=== PATIENT | female | born 1975 | race Two or more races ===

== ENCOUNTER 2017-09-04 10:37 | Emergency (ER) | payer MEDICAID ==
[~2017-09-04] VITALS: Ht 152.4 cm; Wt 58.1 kg
[2017-09-04] MEDS ORDERED: DiphenhydrAMINE 50mg/ml Inj IVP ONE (11:15)
[2017-09-04 11:32] LABS: BASOPHILS % (AUTO) 1.3 % (0.0-2.0); EOSINOPHILS % (AUTO) 1.1 % (0.0-3.0); HEMATOCRIT 28.4 % (37.0-47.0); HEMOGLOBIN 8.3 G/DL (12.0-16.0); LYMPHOCYTES % (AUTO) 20.7 % (20.0-45.0); MEAN CORPUSCULAR VOLUME 67 FL (80-99); MONOCYTES % (AUTO) 6.5 % (1.0-10.0); NEUTROPHILS % (AUTO) 70.3 % (45.0-75.0); PLATELET COUNT 192 K/UL (150-450); RED BLOOD COUNT 4.28 M/UL (4.20-5.40); RED CELL DISTRIBUTION WIDTH 15.5 % (11.6-14.8); WHITE BLOOD COUNT 4.7 K/UL (4.8-10.8)
[2017-09-04 11:47] LABS: ANION GAP 9 mmol/L (5-15); BLOOD UREA NITROGEN 8 mg/dL (7-18); CALCIUM 8.8 MG/DL (8.5-10.1); CARBON DIOXIDE 25 MMOL/L (21-32); CHLORIDE 104 MMOL/L (98-107); CREATININE 0.5 MG/DL (0.55-1.30); POTASSIUM 4.3 MMOL/L (3.5-5.1); SODIUM 138 MMOL/L (136-145)
[2017-09-04 11:54] LABS: APPEARANCE,URINE CLEAR; BILIRUBIN, URINE NEGATIVE (NEGATIVE); COLOR,URINE PALE YELLOW; GLUCOSE, URINE (UA) NEGATIVE (NEGATIVE); KETONES,URINE NEGATIVE (NEGATIVE); LEUKOCYTE ESTERASE ,URINE 1+ (NEGATIVE); NITRITE,URINE NEGATIVE (NEGATIVE); PH,URINE 8 (4.5-8.0); PROTEIN,URINE NEGATIVE (NEGATIVE); UROBILINOGEN,URINE NORMAL MG/DL (0.0-1.0)
[2017-09-04 11:59] LABS: ALANINE AMINOTRANSFERASE 22 U/L (12-78); ALBUMIN 3.6 G/DL (3.4-5.0); ALBUMIN/GLOBULIN RATIO 1.1 (1.0-2.7); ALKALINE PHOSPHATASE 58 U/L (46-116); ASPARTATE AMINO TRANSFERASE 17 U/L (15-37); BILIRUBIN,TOTAL 0.3 MG/DL (0.2-1.0); CREATINE KINASE 45 U/L (26-308)
[2017-09-04 12:00] VITALS: BP 97/54
--- NOTE | 2017-09-04 12:24 | Diagnostic Imaging Report ---
Indication: Dyspnea Comparison: None A single view chest radiograph was obtained. Findings: Cardiomediastinal appearance is within normal limits for age. Pulmonary vascularity is appropriate. The diaphragmatic contour is smooth and costophrenic angles are sharp. No pleural effusions are identified. The bones are unremarkable. Impression: No acute findings
--- NOTE | 2017-09-04 13:10 | Emergency Room Report ---
History of Present Illness General Chief Complaint: Dyspnea/Respdistress Source: Patient Present Illness HPI Patient with increasing dyspnea. Also some dizziness. Increase stress from work. Feels anxiety. Denies chest pain. Has palpitations with dyspnea. No headache or LOC. No NVD. No fevers or chills. No dysuria. No cough or wheezing. Has been progressing over past month and worsened over the last week. No depression. No calf pain or edema. Periods are heavy. Last period end of month. No polies. Unknown thyroid. No rashes. No joint or back pain. Denies prior medical problems. 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 Last Menstrual Period: none Now: No Reviewed Nursing Documentation: PMH: Agreed; PSxH: Agreed Nursing Documentation-PMH Past Medical History: No Stated History Review of Systems All Other Systems: negative except mentioned in HPI Physical Exam Vital Signs Date Time Temp Pulse Resp B/P (MAP) Pulse Ox O2 Delivery O2 Flow Rate FiO2 09/04/17 10:42 98.2 77 18 122/80 99 Room Air 98.2 Sp02 EP Interpretation: reviewed, normal General Appearance: well appearing, no apparent distress, GCS 15 Head: normocephalic Eyes: bilateral eye PERRL, bilateral eye conjunctivae pale ENT: moist mucus membranes Neck: supple Respiratory: lungs clear, normal breath sounds Cardiovascular #1: regular rate, rhythm Cardiovascular #2: 2+ radial (R) Gastrointestinal: normal inspection, normal bowel sounds, non tender, no mass, non-distended Genitourinary: no CVA tenderness Musculoskeletal: back normal, gait/station normal, normal range of motion, no calf tenderness Neurologic: alert, oriented x3, grossly normal Psychiatric: no suicidal/homicidal ideation, depressed affect, anxious Skin: normal inspection, warm/dry Medical Decision Making Diagnostic Impression: Primary Impression: Anemia Qualified Codes: D50.0 - Iron deficiency anemia secondary to blood loss ( chronic) Additional Impression: Stress ER Course Patient presents with dyspnea with increased stress. DDx: hyperventilation, thyroid disease, diabetes, other electrolyte abnormalities, PE, bronchitis, bronchospasm amongst others. Evaluation with EKG, CXR, labs. Treatment with IV hydration and benadryl. Based on VS and exam, PE and thyroid unlikely. EKG without injury. CXR no abnormalities. Labs with significant anemia, microcytic indices. CMP normal. Anemia explains somatic symptoms. She also has stress at job. However, with significant anemia, this might contribute to feeling of unease at work. Discussed stress and need to treat anemia. Patient stable for outpatient observation and treatment. Laboratory Tests Test 09/04/17 11:20 White Blood Count 4.7 K/UL (4.8-10.8) L Red Blood Count 4.28 M/UL (4.20-5.40) Hemoglobin 8.3 G/DL (12.0-16.0) L Hematocrit 28.4 % (37.0-47.0) L Mean Corpuscular Volume 67 FL (80-99) L Mean Corpuscular Hemoglobin 19.4 PG (27.0-31.0) L Mean Corpuscular Hemoglobin Concent 29.1 G/DL (32.0-36.0) L Red Cell Distribution Width 15.5 % (11.6-14.8) H Platelet Count 192 K/UL (150-450) Mean Platelet Volume 9.3 FL (6.5-10.1) Neutrophils (%) (Auto) 70.3 % (45.0-75.0) Lymphocytes (%) (Auto) 20.7 % (20.0-45.0) Monocytes (%) (Auto) 6.5 % (1.0-10.0) Eosinophils (%) (Auto) 1.1 % (0.0-3.0) Basophils (%) (Auto) 1.3 % (0.0-2.0) Prothrombin Time 9.7 SEC (9.30-11.50) Prothrombin Time INR 1.0 (0.9-1.1) PTT 22 SEC (23-33) L Urine Color Pale yellow Urine Appearance Clear Urine pH 8 (4.5-8.0) Urine Specific Herrin 1.010 (1.005-1.035) Urine Protein Negative (NEGATIVE) Urine Glucose (UA) Negative (NEGATIVE) Urine Ketones Negative (NEGATIVE) Urine Occult Blood Negative (NEGATIVE) Urine Nitrite Negative (NEGATIVE) Urine Bilirubin Negative (NEGATIVE) Urine Urobilinogen Normal MG/DL (0.0-1.0) Urine Leukocyte Esterase 1+ (NEGATIVE) H Urine RBC 2-4 /HPF (0 - 2) H Urine WBC 2-4 /HPF (0 - 2) Urine Squamous Epithelial Cells Many /LPF (NONE/OCC) H Urine Bacteria Few /HPF (NONE) Urine HCG, Qualitative Negative (NEGATIVE) Sodium Level 138 MMOL/L (136-145) Potassium Level 4.3 MMOL/L (3.5-5.1) Chloride Level 104 MMOL/L (98-107) Carbon Dioxide Level 25 MMOL/L (21-32) Anion Gap 9 mmol/L (5-15) Blood Urea Nitrogen 8 mg/dL (7-18) Creatinine 0.5 MG/DL (0.55-1.30) L Estimate Glomerular Filtration Rate > 60 mL/min (>60) Glucose Level 112 MG/DL (74-106) H Calcium Level 8.8 MG/DL (8.5-10.1) Total Bilirubin 0.3 MG/DL (0.2-1.0) Aspartate Amino Transferase (AST) 17 U/L (15-37) Alanine Aminotransferase (ALT) 22 U/L (12-78) Alkaline Phosphatase 58 U/L (46-116) Total Creatine Kinase 45 U/L (26-308) Troponin I 0.000 ng/mL (0.000-0.056) Pro-B-Type Natriuretic Peptide 14 pg/mL (0-125) Total Protein 7.0 G/DL (6.4-8.2) Albumin 3.6 G/DL (3.4-5.0) Globulin 3.4 g/dL Albumin/Globulin Ratio 1.1 (1.0-2.7) EKG Diagnostic Results Rate: normal Rhythm: NSR ST Segments: no acute changes Rhythm Strip Diag. Results EP Interpretation: yes Rhythm: NSR, no PVC's, no ectopy Chest X-Ray Diagnostic Results Chest X-Ray Diagnostic Results : Chest X-Ray Ordered: Yes # of Views/Limited/Complete: 1 View Indication: Shortness of Breath EP Interpretation: Yes Interpretation: no consolidation, no effusion, no pneumothorax, no acute cardiopulmonary disease Impression: No acute disease Electronically Signed by: Edgard Plascencia MD Last Vital Signs Date Time Temp Pulse Resp B/P (MAP) Pulse Ox O2 Delivery O2 Flow Rate FiO2 09/04/17 13:41 98.7 75 16 96/54 99 Room Air Status: improved Disposition: HOME, SELF-CARE Condition: Improved Scripts Lorazepam* (ATIVAN*) 0.5 Mg Tablet 0.25 MG ORAL THREE TIMES A DAY PRN for For Anxiety, #10 TAB Prov: Edgard Plascencia M.D. 09/04/17 Multivit&Min/Iron Fm/Folic Acd (FREEDAVITE TABLET) 1 Each Tablet 1 EACH PO DAILY, #30 TAB Prov: Edgard Plascencia M.D. 09/04/17 Referrals: NOT CHOSEN CASANDRA/,REFERRING (PCP) Edgard Plascencia M.D. Sep 04, 2017 13:10
[2017-09-04] MEDS ORDERED: [UNRECOGNIZED DRUG - OTHER] PO (13:15)
[2017-09-04] MEDS ORDERED: ATIVAN0.5 MG ORAL (13:15)
[2017-09-04 13:41] VITALS: BP 96/54
== END 2017-09-04 13:41 | disposition home or self-care (01) ==
LOC: EMR 12:21
DX: D64.9 Anemia, unspecified (principal); F43.9 Reaction to severe stress, unspecified
CPT/HCPCS: 36415; 71045; 80053; 81003; 81025; 82550; 83880; 84484; 85025; 85610; 85730; 93005; 96365; 99284; J1200